=== PATIENT | male | born 1950 | race Hispanic/Latino ===

== ENCOUNTER 2017-02-06 06:28 | Inpatient (IN) | payer MEDICARE, OTHER ==
[2017-02-06] MEDS ORDERED: Bupivacaine 0.5% Inj(30mL) ONE (07:33)
[2017-02-06] MEDS ORDERED: Midazolam 2 MG/2 ML VIAL ONE (08:08)
[2017-02-06] MEDS ORDERED: Propofol 10 mg/ml Inj (20 ML) ONE ×2 (08:08→12:58)
[2017-02-06] MEDS ORDERED: Rocuronium 10 mg/ml (5 ml) ONE (08:10)
[2017-02-06] MEDS ORDERED: Lidocaine 2% Inj (20ml) ONE (08:10)
[2017-02-06] MEDS ORDERED: Phenylephrine 10 mg/ml Inj ONE (09:51)
[2017-02-06] MEDS ORDERED: HYDROmorphone 0.5 mg/0.5 ml ISec IVP PRN ×4 (10:17→13:59)
[2017-02-06] MEDS ORDERED: Lactated Ringer's 1,000 ML IV SCH ×2 (10:17→13:56)
--- NOTE | 2017-02-06 10:18 | PCM.SURG1 ---
Surgeon's Initial Post Op Note - Surgeon's Notes Surgeon: Dr. Castaneda Block Trimmer: Dr. Small, PGY-2 Type of Anesthesia: General LMA Anesthesia Administered By: Dr. Lomeli Pre-Operative Diagnosis: Right Inguinal hernia Operative Findings: See operative report Post-Operative Diagnosis: Same Operation Performed: Right inguinal hernia repair Specimen/Specimens Removed: none Estimated Blood Loss: EBL {In ML}: 5 Blood Products Given: N/A Drains Used: No Drains Post-Op Condition: Good Date of Surgery/Procedure: 02/06/17 Time of Surgery/Procedure: 10:18
[2017-02-06] MEDS ORDERED: Oxycodone/Acetaminophen 5/325 mg Tab ONE (11:18)
[2017-02-06] MEDS: Oxycodone/Acetaminophen 5/325 mg Tab PO PRN ×2 (11:20→18:20)
[2017-02-06 11:58] VITALS: BMI 20.5
--- NOTE | 2017-02-06 12:30 | CON ---
DATE: 02/06/2017 This 66-year-old male was examined at his bedside. The patient has completed a right inguinal hernia repair under the direction of Dr. Marvin Castaneda from surgery. The patient has multiple medical problems including atherosclerotic heart disease, hyperlipidemia, orthostatic hypotension, longstanding insulin- dependent diabetes mellitus with peripheral neuropathy, chronic hypertension, organic brain syndrome, peptic ulcer disease with gastroesophageal reflux disease, pancreatic insufficiency, peripheral neuropathy, spinal arthritis and degenerative arthritis. The patient was noted to have a right inguinal hernia and has had a right inguinal hernia repair with mesh placement by Dr. Castaneda. REVIEW OF SYSTEMS: HEAD: No headache or seizure. EYES: No change in visual acuity. EARS: No hearing loss. THROAT: No swallowing difficulty. NECK: No stiffness. CARDIAC: He follows with Dr. Reagan from the [facility]. The patient completed a 4-vessel CABG in March of last year, has a history of hypertension, orthostatic hypotension and reportedly had an unremarkable 2D echocardiogram in the recent past, also an unremarkable stress test. PULMONARY: No cough, no hemoptysis. GASTROINTESTINAL: Peptic ulcer disease with pancreatic insufficiency. GENITOURINARY: No dysuria. SKIN: Without rash. NEUROLOGICAL: Peripheral neuropathy. VASCULAR: No claudication. ENDO; IDDM, hyperlipidemia. ALLERGIES: He has no known allergies to medication. He is a current nondrinker, nonsmoker, non-IV drug misuser. FAMILY HISTORY: Noncontributory. MEDICATIONS: Includes Crestor, ProAmatine, insulin, multivitamin, metoprolol succinate, Namenda, Prilosec, Creon, Humalog, Neurontin, Wellbutrin, Ecotrin and Elavil. PHYSICAL EXAMINATION: VITAL SIGNS: Temperature 97.9, respirations 16, pulse 79, blood pressure 168/ 90 with a pulse ox of 99%. HEAD: Normocephalic, atraumatic. EYES: No icterus. EARS: Clear. THROAT: Noninjected. NECK: Supple. HEART: S1, S2. LUNGS: Clear. ABDOMEN: Soft. EXTREMITIES: No edema. SKIN: Without rash. NEUROLOGICAL: Intact. PSYCHOLOGICAL: Alert. VASCULAR: Legs warm to touch. Random blood sugar 210. IMPRESSION: A 66-year-old male, status post right inguinal hernia repair with comorbidities as listed above, now with postoperative hypertension and pain. The patent is to receive 1 dose of Toradol 50 mg as outlined. He has a prescription that I have reviewed with Dr. Castaneda from surgery for Percocet 5/ 325 one every 6 hours p.r.n. severe pain, #20, no refills. The patient is instructed on his outpatient medication, which he will continue upon discharge. The patient is aware that he needs to wear anti-embolism stockings, ambulate and follow up with Dr. Castaneda as per his recommendation and as discussed with Dr. Castaneda, the patient will be discharged to home later this evening if stable. All of the above was reviewed in detail with the patient, Dr. Castaneda, and his nursing staff at the bedside. Esther Claros MD cc: [id number] TT: 02/06/2017 12:30:03 Confirmation # [id number] Dictation # [id number] MTDD
[2017-02-06] MEDS ORDERED: Collagen Hemostat Powder ONE (13:16)
[2017-02-06] MEDS ORDERED: Naloxone 0.4 mg/ml Inj (Adult) ONE (13:21)
[2017-02-06] MEDS ORDERED: HYDROmorphone 0.5 mg/0.5 ml ISec ONE (14:17)
[2017-02-06] MEDS: Insulin Reg-LOW-Coverage SC SCH ×2 (16:30→21:21)
[2017-02-06] MEDS ORDERED: MIDODRINE 10 MG PO SCH (18:00)
--- NOTE | 2017-02-06 19:01 | OP ---
PROCEDURE DATE: 02/06/2017 PREOPERATIVE DIAGNOSIS: Postoperative bleeding. POSTOPERATIVE DIAGNOSIS: Postoperative bleeding. OPERATION PERFORMED: Exploration of the wound in the right inguinal area. DESCRIPTION OF PROCEDURE: In the operating room, the patient was identified by name, number, procedu re, and laterality. The patient had a very recent right inguinal hernia repair. The external obliqu e was divided as was the scarpas. Going through the external oblique, there was certainly bleeding. It was not a large amount, but certainly more than expected within an hour. There was ecchymosis in the scrotum. Clot was squeezed out of the scrotum by bimanual pressure and it was sucked out with a tonsil sucker. Picking up on the mesh, there was no bleeding on the top and really no bleeding ongo ing from the bottom. On the floor in the muscle was an arterial bleeder. This was suture ligated wi th a Vicryl to get good effect. A Surgicel and Avitene was placed, and there was no bleeding. The m esh was then placed in its normal position. The external oblique was closed with Vicryl, scarpas was closed with Vicryl. Skin was closed with antwan over a drain that was in the pelvis through the ex ternal oblique. Light pressure dressing was applied. The patient taken to recovery room in good con dition after sponge and needle counts were declared correct. Marvin Castaneda MD cc: [phone] TT: 02/06/2017 19:00:50 david
--- NOTE | 2017-02-06 19:12 | OP ---
PROCEDURE DATE: 02/06/2017 PREOPERATIVE DIAGNOSIS: Right inguinal hernia. POSTOPERATIVE DIAGNOSIS: Right inguinal hernia. OPERATION PERFORMED: Right inguinal hernia with a plug and patch. The patient was marked preoperatively. The successful timeout was done measuring the patient against her name, number, birthday, wrist band, my consent, my capo, my name and number. Preoperative antib iotics 2 grams were given. After the prep and drape and a clip, the right inguinal incision was made through the skin and subcutaneous tissues. It was dissected down to the Tam's. The external obl ique was developed. In the usual manner, it was opened and then spread using a [place] and clearly iden tifying the nerves. Allises were placed on the fascia. The undersurface was cleaned. The cord was circumscribed at the pubic tubercle and gently circumscribed. Using a Madai drain, this was pulled up, exposing the normal cord structures without issue. The hernia was identified entering medial as usual. This was dissected by sharp, blunt and cautery dissection. A high dissection was done. It was not ligated. The sac was then placed in the retroperitoneum, having been twisted. The plug was placed and then sutured with a Vicryl. The mesh was placed around the cord and sutured. It was plac ed in a neutral position and noting there was no bleeding at all. The external oblique was closed wi th 2-0 Vicryl continuous. Tam's was closed with Vicryl and a subcuticular stitch was placed to cl ose very nicely. The testicle was put in its normal position. The patient was taken to recovery shakira mckeon Marvin Castaneda MD cc: [phone] TT: 02/06/2017 19:12:02 en
[2017-02-07] MEDS: Oxycodone/Acetaminophen 5/325 mg Tab PO PRN ×3 (00:59→20:40)
[2017-02-07 08:07] LABS: ADD MANUAL DIFF? NO
[2017-02-07 08:15] LABS: BASO # 0.02 K/mm3 (0.0-2.0); BASO % 0.3 % (0.0-3.0); EOS # 0.1 (0.0-0.7); GRAN # 4.44 (1.4-6.5); GRAN % 75.9 % (50.0-68.0); LYMPH # 0.8 (1.2-3.4); LYMPH % 14.3 % (22.0-35.0); MEAN CELL VOLUME 104.2 fL (80.0-105.0); MEAN CORPUSCULAR HGB CONC 33.6 g/dl (31.0-37.0); MEAN PLATELET VOLUME 11.1 fl (7.0-11.0); MONO # 0.4 (0.1-0.6); MONO % 7.5 % (1.0-6.0); PLATELET COUNT 135 10^3/uL (120.0-450.0); RED CELL DISTRIBUTION WIDTH 13.7 % (11.5-14.5); WHITE BLOOD COUNT 5.9 10^3/ul (4.5-11.0)
[2017-02-07] MEDS: Insulin Reg-LOW-Coverage SC SCH (08:15)
[2017-02-07 08:35] LABS: CALCIUM 9.1 mg/dL (8.4-10.5); POTASSIUM 4.8 mmol/L (3.6-5.0)
[2017-02-07] MEDS ORDERED: Non Formulary Medication (Omeprazole [Omeprazole] 40 MG) PO SCH (10:00)
[2017-02-07] MEDS: buPROPion 150 mg/24 Hours XL Tab PO SCH (10:02)
[2017-02-07] MEDS: Metoprolol Succinate 25 mg XL Tab PO SCH (10:03)
[2017-02-07] MEDS: Pantoprazole 40 mg EC Tab PO SCH (10:03)
[2017-02-07] MEDS ORDERED: Insulin Reg-LOW-Coverage SC SCH (12:33)
--- NOTE | 2017-02-07 14:52 | CP.PCM.PN ---
Subjective - Date & Time of Evaluation Date of Evaluation: 02/07/17 Time of Evaluation: 01:00 - Subjective Subjective: Patient seen and examined at bedside. No acute events overnight. Patient is doing well. He reports some mild discomfort around the surgical site. He denies abdominal pain, focal weakness or numbness. Surgery site is cleaned and dressed. Objective - Vital Signs/Intake and Output Vital Signs (last 24 hours): Temp Pulse Resp BP Pulse Ox 99.1 F 105 H 18 130/77 98 02/07/17 13:56 02/07/17 13:56 02/07/17 13:56 02/07/17 13:56 02/07/17 06:00 Intake and Output: 02/07/17 02/07/17 06:59 18:59 Intake Total 910 50 Output Total 2240 Balance -1330 50 - Medications Medications: Current Medications Amitriptyline HCl (Elavil) 100 mg PO HS [facility] Last Admin: 02/06/17 21:18 Dose: 100 mg Bupropion HCl (Wellbutrin Xl) 300 mg PO DAILY [facility] Last Admin: 02/07/17 10:02 Dose: 300 mg Clonidine HCl (Catapres) 0.1 mg PO BID PRN PRN Reason: Systolic Blood Pressure Insulin Human Regular (Humulin R Low) 0 units SC ACHS [facility] PRN Reason: Protocol Last Admin: 02/07/17 12:43 Dose: 7 units Memantine (Namenda) 10 mg PO DAILY [facility] Last Admin: 02/07/17 10:03 Dose: 10 mg Metoprolol Succinate (Toprol Xl) 25 mg PO DAILY [facility] Last Admin: 02/07/17 10:03 Dose: 25 mg Midodrine (Proamatine) 10 mg PO TID [facility] Last Admin: 02/07/17 14:04 Dose: 10 mg Oxycodone/Acetaminophen (Percocet 5/325 Mg Tab) 1 tab PO Q4H PRN PRN Reason: Pain, moderate (4-7) Stop: 02/09/17 10:17 Last Admin: 02/07/17 08:19 Dose: 1 tab Pantoprazole Sodium (Protonix Ec Tab) 40 mg PO DAILY [facility] Last Admin: 02/07/17 10:03 Dose: 40 mg - Labs Labs: 02/07/17 07:30 02/07/17 07:30 - Constitutional Appears: Non-toxic, No Acute Distress - Head Exam Head Exam: ATRAUMATIC, NORMOCEPHALIC - Eye Exam Eye Exam: EOMI, PERRL - ENT Exam ENT Exam: Mucous Membranes Moist - Neck Exam Neck Exam: Tenderness - Respiratory Exam Respiratory Exam: Clear to Ausculation Bilateral. absent: Rales, Rhonchi, Wheezes - Cardiovascular Exam Cardiovascular Exam: REGULAR RHYTHM. absent: +S1, +S2 - GI/Abdominal Exam GI & Abdominal Exam: Soft, Normal Bowel Sounds. absent: Tenderness - Extremities Exam Extremities Exam: absent: Calf Tenderness, Pedal Edema - Neurological Exam Neurological Exam: Alert, Awake, CN II-XII Intact, Oriented x3 - Psychiatric Exam Psychiatric exam: Normal Affect, Normal Mood - Skin Additional comments: right inguinal hernia site cleaned and dressed. There is no evidence of surgical site infection. Assessment and Plan - Assessment and Plan (Free Text) Assessment: 66 y/o male s/p right inguinal hernia repair with mesh placement and hematoma evacuation POD #1. Patient is anemic with Hgb 8.4 today. Given these findings the patient will remain in the hospital for further w/u per his primary. - pain management - OOB and ambulate - drain to remain in place - dressing changes daily - transfuse 2u PRBC per primary - medical management per primary
[2017-02-07 16:34] VITALS: RESP 18
[2017-02-07] MEDS: Insulin Reg-MEDIUM-Coverage SC SCH ×2 (17:33→22:12)
[2017-02-07 21:36] LABS: HEMATOCRIT 28.2 % (42.0-52.0)
--- NOTE | 2017-02-07 23:58 | PN ---
DATE: 02/07/2017 This 66-year-old male was examined at his bedside in the presence of his with his nurse, Essence Treadwell. His case was reviewed in detail with attending Dr. Marvin Castaneda as well. The patient is stat us post right inguinal hernia repair that was complicated by postoperative bleeding that required fur ther surgery and ligation of a bleeding blood vessel. Of note, laboratory today showed hemoglobin 8. 4, hematocrit 25.0. This was discussed with Dr. Castaneda and all agreed that the patient would benefi t from a blood cell transfusion given history of atherosclerotic heart disease and orthostatic hypote nsion. The patient and were in agreement and signed consent at the bedside at the time of evalu ation. PHYSICAL EXAMINATION: VITAL SIGNS: Temperature 98.9, respirations 18, pulse 106, blood pressure 131/79 with a pulse ox of 98% on room air. HEAD: Normocephalic, atraumatic. EYES: No icterus. EARS: Clear. THROAT: Noninjected. NECK: Supple. HEART: S1, S2. LUNGS: Clear. ABDOMEN: Soft. EXTREMITIES: No edema. SKIN: Without rash. NEUROLOGIC: Intact. PSYCHOLOGICAL: Alert. VASCULAR: Warm to touch. LABORATORY DATA: White count 5900, hemoglobin 8.4, hematocrit 25.0, MCV 104.2, platelets 135,000. S odium 140, K 4.8, chloride 105, bicarbonate 27, BUN 36, creatinine 1.6. Random blood sugar was 188. IMPRESSION: This is a 66-year-old male status post right inguinal hernia repair with postoperative a nemia and also a history of anemia of chronic disease, history of atherosclerotic heart disease, hype rlipidemia, chronic hypertension, orthostatic hypotension, insulin-dependent diabetes mellitus, organ ic brain syndrome, peptic ulcer disease, pancreatic insufficiency, peripheral neuropathy, spinal arth ritis, degenerative arthritis, status post right inguinal hernia repair. PLAN: At present is to transfuse the patient 2 units of packed red blood cells. He continues on med ications as outlined including Elavil, insulin coverage, Namenda, ProAmatine, Protonix, Toprol and We llbutrin. He will continue incentive spirometry and nasal O2 p.r.n. He is ordered to have post-bloo d cell transfusion and labs. He is wearing anti-embolism stockings. Surgery is monitoring his wound site and ultimate plan will be for discharge to home when medically stable and the patient has been given a referral to Dr. Randall Yoder regarding anemia of chronic disease and possible treatment with ou tpatient Procrit in his hematology office. The patient and were aware and in agreement with thi s plan of action and this has been discussed in detail with Dr. Marvin Castaneda from surgery as well. Esther Claros MD cc: [phone] TT: 02/07/2017 23:57:54 Confirmation # [id number] Dictation # [id number] dn
[2017-02-08 06:37] VITALS: TEMP 98.6; O2SAT 96
[2017-02-08 07:51] LABS: ADD MANUAL DIFF? NO
[2017-02-08] MEDS: Insulin Reg-MEDIUM-Coverage SC SCH (08:09)
[2017-02-08 08:13] LABS: BASO # 0.03 K/mm3 (0.0-2.0); BASO % 0.5 % (0.0-3.0); EOS # 0.1 (0.0-0.7); EOS % 1.5 % (1.5-5.0); GRAN # 4.48 (1.4-6.5); GRAN % 74.4 % (50.0-68.0); HEMATOCRIT 29.9 % (42.0-52.0); LYMPH # 0.9 (1.2-3.4); LYMPH % 15.3 % (22.0-35.0); MEAN CORPUSCULAR HGB CONC 34.8 g/dl (31.0-37.0); MEAN PLATELET VOLUME 10.9 fl (7.0-11.0); MONO # 0.5 (0.1-0.6); MONO % 8.3 % (1.0-6.0); PLATELET COUNT 124 10^3/uL (120.0-450.0); RED CELL DISTRIBUTION WIDTH 19.2 % (11.5-14.5)
[2017-02-08 08:32] LABS: MEAN CELL VOLUME 94.9 fL (80.0-105.0)
--- NOTE | 2017-02-08 09:25 | CP.PCM.DIS ---
Provider - Provider Date of Admission: 02/07/17 14:54 Attending physician: Marvin Castaneda MD Primary care physician: Esther Claros MD Time Spent in preparation of Discharge (in minutes): 10 Hospital Course - Lab Results Lab Results: Micro Results 02/06/17 16:35 Naris MRSA Culture (Admit) - Final MRSA NOT DETECTED Most Recent Lab Values WBC 6.0 10^3/ul (4.5-11.0) 02/08/17 07:45 RBC 3.15 10^6/uL (3.5-6.1) L 02/08/17 07:45 Hgb 10.4 gm/dL (14.0-18.0) L 02/08/17 07:45 Hct 29.9 % (42.0-52.0) L 02/08/17 07:45 MCV 94.9 fL (80.0-105.0) 02/08/17 07:45 MCH 33.0 pg (25.0-35.0) 02/08/17 07:45 MCHC 34.8 g/dl (31.0-37.0) 02/08/17 07:45 RDW 19.2 % (11.5-14.5) H 02/08/17 07:45 Plt Count 124 10^3/uL (120.0-450.0) 02/08/17 07:45 MPV 10.9 fl (7.0-11.0) 02/08/17 07:45 Gran % 74.4 % (50.0-68.0) H 02/08/17 07:45 Lymph % (Auto) 15.3 % (22.0-35.0) L 02/08/17 07:45 Callahan % (Auto) 8.3 % (1.0-6.0) H 02/08/17 07:45 Eos % (Auto) 1.5 % (1.5-5.0) 02/08/17 07:45 Baso % (Auto) 0.5 % (0.0-3.0) 02/08/17 07:45 Gran # 4.48 (1.4-6.5) 02/08/17 07:45 Lymph # 0.9 (1.2-3.4) L 02/08/17 07:45 Callahan # 0.5 (0.1-0.6) 02/08/17 07:45 Eos # 0.1 (0.0-0.7) 02/08/17 07:45 Baso # 0.03 K/mm3 (0.0-2.0) 02/08/17 07:45 Sodium 140 mmol/L (132-148) 02/07/17 07:30 Potassium 4.8 mmol/L (3.6-5.0) 02/07/17 07:30 Chloride 105 mmol/L (98-107) 02/07/17 07:30 Carbon Dioxide 27 mmol/L (21-33) 02/07/17 07:30 Anion Gap 13 (10-20) 02/07/17 07:30 BUN 36 mg/dL (7-21) H 02/07/17 07:30 Creatinine 1.6 mg/dL (0.5-1.4) H 02/07/17 07:30 Est GFR ( Amer) 53 02/07/17 07:30 Est GFR (Non-Af Amer) 44 02/07/17 07:30 POC Glucose (mg/dL) 210 mg/dL (65-110) H 02/06/17 07:03 Random Glucose 188 mg/dL (70-110) H 02/07/17 07:30 Calcium 9.1 mg/dL (8.4-10.5) 02/07/17 07:30 Blood Type A POSITIVE 02/06/17 12:55 Antibody Screen Negative 02/06/17 12:55 Crossmatch See Detail 02/06/17 12:55 BBK History Checked Patient has bt 02/06/17 12:55 - Hospital Course Hospital Course: 66M admitted via [facility] for open right inguinal hernia repair. Pt developed hematoma post-op and was taken back for evacuation and hemostasis. Kept additional night for observation and 2 units pRBC at primary's request. D/C today with stable HgB, no further evidence of bleeding and instructions for post -op care Discharge Exam - Head Exam Head Exam: ATRAUMATIC, NORMOCEPHALIC - Respiratory Exam Respiratory Exam: NORMAL BREATHING PATTERN. absent: Accessory Muscle Use, Respiratory Distress - Cardiovascular Exam Cardiovascular Exam: REGULAR RHYTHM. absent: Tachycardia - GI/Abdominal Exam GI & Abdominal Exam: Soft, Tenderness (post-surgical and appropriate). absent: Distended, Firm, Guarding, Hernia Additional comments: massiel in place, minimal serosanguinous drainage - Neurological Exam Neurological exam: Alert, Oriented x3 - Psychiatric Exam Psychiatric exam: Normal Affect, Normal Mood - Skin Skin Exam: Normal Color Discharge Plan - Follow Up Plan Condition: GOOD Disposition: HOME/ ROUTINE Instructions: Open Herniorrhaphy (DC) Additional Instructions: Please see Dr. Castaneda in the office in one week for further evaluation and removal of sutures. Please see your primary physician within the next week. Avoid lifting objects greater than 10lbs until you are cleared by Dr. Castaneda. You may shower however avid vigorous scrubbing to the surgical area. Call or return to the hospital if you experience worsening pain, numbness, fever or chills. Referrals: Esther Claros MD [Primary Care Provider] -
[2017-02-08] MEDS: buPROPion 150 mg/24 Hours XL Tab PO SCH (09:30)
[2017-02-08] MEDS: Pantoprazole 40 mg EC Tab PO SCH (09:30)
[2017-02-08] MEDS: Metoprolol Succinate 25 mg XL Tab PO SCH (09:30)
[2017-02-08 09:34] VITALS: BP 138/80; PULSE 100
--- NOTE | 2017-02-08 12:58 | PN ---
DATE: 02/08/2017 This 66-year-old male is being readied for discharge status post right inguinal hernia repair. He stout s tolerated his 2 units of packed red blood cell transfusion and post-transfusion blood count shows w tonya count 6000, hemoglobin 10.4, hematocrit 29.9 with a platelet count of 124,000. PHYSICAL EXAMINATION: VITAL SIGNS: Temperature is 98.6, respirations 18, pulse 109 and blood pressure 134/83 with a pulse ox of 96% on room air. HEAD: Normocephalic, atraumatic. EYES: No icterus. EARS: Clear. THROAT: Noninjected. NECK: Supple. HEART: S1, S2. LUNGS: Clear. ABDOMEN: Soft. EXTREMITIES: No edema. SKIN: Without rash. NEUROLOGIC: Intact. PSYCHOLOGICAL: Alert. VASCULAR: Legs warm to touch. LABORATORY DATA: Sodium 140, potassium 4.8, chloride 105, bicarbonate 27, BUN 36, creatinine 1.6, ra ndom blood sugar 188, white count 6000, hemoglobin 10.4, hematocrit 29.9, platelets 124,000. IMPRESSION: A 66-year-old male status post right inguinal hernia repair with multiple comorbidities including hyperlipidemia, stable atherosclerotic heart disease, status post coronary artery bypass gr aft, chronic hypertension, orthostatic hypotension, insulin-dependent diabetes mellitus, peptic ulcer disease, pancreatic insufficiency, peripheral neuropathy, organic brain syndrome, spinal arthritis, depression, degenerative arthritis. PLAN: At present is to discharge to home. The patient will follow up with Dr. Marvin Castaneda, [facility], in his office on Friday regarding right inguinal hernia repair followup. He has a referral for Dr. Yoder, hematology, regarding anemia of chronic disease and evaluation for possible Procrit therap y through his office. He will continue on his maintenance medications including Elavil, baby aspirin , Wellbutrin, Neurontin, Humalog insulin, Creon, omeprazole, Namenda, metoprolol succinate, multivita min, Humalog insulin, ProAmatine, Crestor. The patient will be monitored in the medical office outpa tient setting as well. The patient has been advised for any change in signs and symptoms to present directly to [facility] ER and all of these orders were reviewed again with his nurse, Violet Vizcarra, who has given the patient his referral to Dr. Yoder and Dr. Castaneda as well. Esther Claros MD cc: [phone] TT: 02/08/2017 12:57:29 Confirmation # [id number] Dictation # [id number] rn
== END 2017-02-08 11:56 | disposition home or self-care (01) | DRG 351 ==
LOC: SDS 06:28 → 3RNO 16:08 → OBSVTOIN 02-07 14:54
PROVIDERS: ADMIT Surgery; ATTEND Surgery
PROC: 04LY0ZZ Occlusion of Lower Artery, Open Approach (ICD-10-PCS; 2017-02-06)
PROC: 0VC50ZZ Extirpation of Matter from Scrotum, Open Approach (ICD-10-PCS; 2017-02-06)
PROC: 0YU50JZ Supplement Right Inguinal Region with Synthetic Substitute, Open Approach (ICD-10-PCS; principal; 2017-02-06 09:00)
PROC: 30233N1 Transfusion of Nonautologous Red Blood Cells into Peripheral Vein, Percutaneous Approach (ICD-10-PCS; 2017-02-07)
DX: K40.90 Unilateral inguinal hernia, without obstruction or gangrene, not specified as recurrent (principal); K91.840 Postprocedural hemorrhage of a digestive system organ or structure following a digestive system procedure; K91.870 Postprocedural hematoma of a digestive system organ or structure following a digestive system procedure; D63.8 Anemia in other chronic diseases classified elsewhere; I97.3 Postprocedural hypertension; E11.42 Type 2 diabetes mellitus with diabetic polyneuropathy; I10 Essential (primary) hypertension; I25.10 Atherosclerotic heart disease of native coronary artery without angina pectoris; K21.9 Gastro-esophageal reflux disease without esophagitis; I95.1 Orthostatic hypotension; E78.5 Hyperlipidemia, unspecified; M46.90 Unspecified inflammatory spondylopathy, site unspecified; K27.9 Peptic ulcer, site unspecified, unspecified as acute or chronic, without hemorrhage or perforation; F09 Unspecified mental disorder due to known physiological condition; Y83.8 Other surgical procedures as the cause of abnormal reaction of the patient, or of later complication, without mention of misadventure at the time of the procedure; Z79.4 Long term (current) use of insulin; Z95.1 Presence of aortocoronary bypass graft

== ENCOUNTER 2017-03-13 19:42 | Emergency (ER) | payer MEDICARE, OTHER ==
[2017-03-13 19:42] VITALS: BMI 20.7
[2017-03-13 20:07] VITALS: BP 150/83
[2017-03-13] MEDS ORDERED: Oxycodone/Acetaminophen 10/325 mg Tab PO STA (20:31)
--- NOTE | 2017-03-13 20:34 | ED PDOC ---
Arrival/HPI - General Chief Complaint: Back Pain Time Seen by Provider: 03/13/17 20:12 Historian: Patient - History of Present Illness Narrative History of Present Illness (Text): 03/13/17 20:32 This 66 yo male with pmh dm, herniated disc, chronic back pain, cad, presents to this ED c/o exacerbation of back pain x 2 days. Patient stated pain radiates to his left sciatica area. Denies trauma, fall, fever, sob, cp, weakness, paresthesias, /GI incontinence, saddle anesthesia, urinary retention , dizziness, or abnormal gait. Time/Duration: Other (2 days) Quality: Aching Context: Home Past Medical History - Provider Review Nursing Documentation Reviewed: Yes (z+) - Infectious Disease Hx of Infectious Diseases: None - Tetanus Immunization Tetanus Immunization: Up to Date - Reproductive Currently : No Currently Lactating: No - Cardiac Hx Cardiac Disorders: Yes Hx Hypertension: Yes Hx Pacemaker: No - Pulmonary Hx Respiratory Disorders: No - Neurological Hx Dementia: Yes - HEENT Hx HEENT Disorder: No - Renal Hx Renal Disorder: No - Endocrine/Metabolic Hx Diabetes Mellitus Type 2: Yes - Hematological/Oncological Hx Blood Disorders: Yes Hx Anemia: Yes - Integumentary Hx Dermatological Disorder: No - Musculoskeletal/Rheumatological Hx Musculoskeletal Disorders: Yes Hx Falls: Yes - Gastrointestinal Hx Gastrointestinal Disorders: Yes Hx Gastroesophageal Reflux: Yes Hx Pancreatitis: Yes - Genitourinary/Gynecological Hx Genitourinary Disorders: No - Psychiatric Hx Anxiety: Yes Hx Depression: Yes Hx Substance Use: No - Surgical History Hx Cardiac Catheterization: Yes - Anesthesia Hx Anesthesia Reactions: No Hx Malignant Hyperthermia: No - Suicidal Assessment Feels Threatened In Home Enviroment: No Family/Social History - Physician Review Nursing Documentation Reviewed: Yes Family/Social History: No Known Family HX Smoking Status: Former Smoker Hx Alcohol Use: Yes (PAST ETOH) Hx Substance Use: No Hx Substance Use Treatment: No Allergies/Home Meds Allergies/Adverse Reactions: Allergies No Known Allergies Allergy (Verified 03/13/17 20:07) Home Medications: Home Meds Medication Instructions Recorded Confirmed Multivitamin [One Daily 1 tab PO QAM 08/20/12 03/13/17 Multivitamin] Aspirin [Aspirin Chewable] 81 mg PO DAILY 03/04/16 03/13/17 Bupropion HCl [Bupropion Xl] 300 mg PO DAILY 03/04/16 03/13/17 Omeprazole 40 mg PO DAILY 03/04/16 03/13/17 Amitriptyline [Elavil] 100 mg PO HS 09/12/16 03/13/17 Gabapentin [Neurontin] 600 mg PO TID 09/12/16 03/13/17 Insulin Lispro [humALOG] 8 - 10 units SC ACLD 09/12/16 03/13/17 Lactobacillus Combination No.8 1 tab PO DAILY 09/12/16 03/13/17 [Adult Probiotic] Lipase/Protease/Amylase [Creon Dr 2 cap PO TID 09/12/16 03/13/17 12,000 Units Capsule] Memantine [Namenda] 10 mg PO DAILY 09/12/16 03/13/17 Metoprolol Succinate 25 mg PO DAILY 09/12/16 03/13/17 Insulin Lispro [Humalog (Insulin 15 - 20 unit SQ ACB 01/22/17 03/13/17 Lispro)] Midodrine [Proamatine] 10 mg PO TID 01/22/17 03/13/17 Rosuvastatin Calcium [Crestor] 10 mg PO DIN 01/22/17 03/13/17 Review of Systems - Review of Systems Constitutional: Normal. absent: Fatigue, Weight Change, Fevers Eyes: Normal ENT: Normal Respiratory: Normal Cardiovascular: Normal Gastrointestinal: Normal Genitourinary Male: Normal Musculoskeletal: Back Pain, Other (See HPI). absent: Arthralgias, Neck Pain, Joint Swelling Skin: Normal Neurological: Normal Endocrine: Normal Hemo/Lymphatic: Normal Psychiatric: Normal Physical Exam Vital Signs Temp Pulse Resp BP Pulse Ox 03/13/17 20:53 99.0 F 99 H 16 96 03/13/17 20:52 99.0 F 99 H 16 99 03/13/17 20:02 99.1 F 102 H 16 150/83 96 Temperature: Afebrile Blood Pressure: Normal Pulse: Regular Respiratory Rate: Normal Appearance: Positive for: Well-Appearing, Non-Toxic, Comfortable Pain Distress: None Mental Status: Positive for: Alert and Oriented X 3 - Systems Exam Head: Present: Atraumatic, Normocephalic Pupils: Present: PERRL Extroacular Muscles: Present: EOMI Conjunctiva: Present: Normal Mouth: Present: Moist Mucous Membranes Neck: Present: Normal Range of Motion Respiratory/Chest: Present: Clear to Auscultation, Good Air Exchange. No: Respiratory Distress, Accessory Muscle Use, Wheezes, Retracting, Rhonchi Cardiovascular: Present: Regular Rate and Rhythm, Normal S1, S2. No: Murmurs Back: Present: Normal Inspection, Paraspinal Tenderness (mild left paravertebral tenderness over areao left sciatica). No: CVA Tenderness, Midline Tenderness, Pain with Leg Raise, Decubitus Ulcer Upper Extremity: Present: Normal Inspection, Normal ROM, NORMAL PULSES, Neurovascularly Intact, Capillary Refill < 2s Lower Extremity: Present: Normal Inspection, NORMAL PULSES, Normal ROM. No: Edema, CALF TENDERNESS Neurological: Present: GCS=15, CN II-XII Intact, Speech Normal, Gait Normal. No : Motor Func Grossly Intact, Normal Sensory Function, Normal Cerebellar Funct Skin: Present: Warm, Dry, Normal Color. No: Rashes Psychiatric: Present: Alert, Oriented x 3 Medical Decision Making ED Course and Treatment: 03/13/17 20:48 Re-evaluation. Patient feels better. Discussed results and plan with patient who expresses understanding. All questions answered and there is agreement with the plan to discharge home with instructions. Patient stable for discharge. Return if symptoms persist or worsen Patient stated his DM is well control. Denies neuro focal deficits. Patient has normal gait. Patient refused FS POC. Pain has improved after Percocet PO [place] [employer] was checked with last prescription of Tylenol #3 was last year. Patient is aware that the use of Percocet put him a risk for addiction to this drug, and potentially risk of abuse of other similar legal, or illegal drug. He understands and he agrees with the prescription. Re-evaluation Time: 20:49 Reassessment Condition: Re-examined, Improved - Medication Orders Current Medication Orders: Discontinued Medications Oxycodone/Acetaminophen (Percocet 10/325 Mg Tab) 1 tab PO STAT STA Stop: 03/13/17 20:32 Last Admin: 03/13/17 20:45 Dose: 1 tab Disposition/Present on Arrival - Present on Arrival Any Indicators Present on Arrival: No History of DVT/PE: No History of Uncontrolled Diabetes: No Urinary Catheter: No History of Decub. Ulcer: No History Surgical Site Infection Following: None - Disposition Have Diagnosis and Disposition been Completed?: Yes Diagnosis: Back pain Disposition: HOME/ ROUTINE Disposition Time: 20:50 Patient Plan: Discharge Condition: IMPROVED Discharge Instructions (ExitCare): Back Pain (ED) Additional Instructions: Call private doctor for follow up visit in 1-2 days. Make sure to see your pain management doctor next week as scheduled by you. Return to emergency if symptoms worsen. Prescriptions: Methocarbamol [Robaxin-750] 750 mg PO TID #21 tab oxyCODONE/Acetaminophen [Percocet 5/325 mg Tab] 1 tab PO BID #10 tab Referrals: Esther Claros MD [Primary Care Provider] - Follow up with primary
[2017-03-13 20:53] VITALS: PULSE 99; RESP 16; TEMP 99
[2017-03-13 20:54] VITALS: O2SAT 96
== END 2017-03-13 20:53 | disposition home or self-care (01) ==
LOC: ED 19:42
DX: M54.9 Dorsalgia, unspecified (principal); Z87.891 Personal history of nicotine dependence; E11.9 Type 2 diabetes mellitus without complications; I25.10 Atherosclerotic heart disease of native coronary artery without angina pectoris

== ENCOUNTER 2017-04-01 09:52 | Observation (INO) | payer MEDICARE, OTHER ==
--- NOTE | 2017-04-01 10:30 | ED PDOC ---
Arrival/HPI - General Historian: Patient, Spouse - History of Present Illness Time/Duration: Prior to Arrival Symptom Onset: Sudden Symptom Course: Resolved Context: Home <Moni Bean - Last Filed: 04/01/17 14:43> <Yohana Randhawa - Last Filed: 04/01/17 18:29> - General Chief Complaint: Medical Clearance Time Seen by Provider: 04/01/17 10:14 - History of Present Illness Narrative History of Present Illness (Text): 04/01/17 10:35 Patient is a 67 y/o with pmh of CAD s/p triple bypass last year, IDDM2, neuropathy, dementia presenting with hypoglycemia. As per patient he used his 10 units humalog prior to dinner last night, and he took 30 units of levemir prior to bed. Patient's states patient usually eats breakfast around 7-8, this AM they woke up late, and when she checked patient's glucose it was 31. Patient's called ambulance and patient was giving d50. As per patient's patient had similar episode last week, however decided not to come to the ED. Patient denies cp, sob, n/v/d, denies fever or chills. Patient admits to dysuria. C/o chronic pain in the left hip 2nd to pinched nerve. (Moni Bean) Past Medical History - Provider Review Nursing Documentation Reviewed: Yes - Travel History Have you recently traveled outside [place] w/in the past 3 mons?: No - Infectious Disease Hx of Infectious Diseases: None - Tetanus Immunization Tetanus Immunization: Up to Date - Reproductive Currently : No Currently Lactating: No - Cardiac Hx Cardiac Disorders: Yes Hx Hypertension: Yes Hx Pacemaker: No - Pulmonary Hx Respiratory Disorders: No - Neurological Hx Dementia: Yes - HEENT Hx HEENT Disorder: No - Renal Hx Renal Disorder: No - Endocrine/Metabolic Hx Diabetes Mellitus Type 1: Yes - Hematological/Oncological Hx Blood Disorders: Yes Hx Anemia: Yes - Integumentary Hx Dermatological Disorder: No - Musculoskeletal/Rheumatological Hx Musculoskeletal Disorders: Yes Hx Falls: Yes - Gastrointestinal Hx Gastrointestinal Disorders: Yes Hx Gastroesophageal Reflux: Yes Hx Pancreatitis: Yes - Genitourinary/Gynecological Hx Genitourinary Disorders: No - Psychiatric Hx Anxiety: Yes Hx Depression: Yes Hx Substance Use: No - Surgical History Hx Cardiac Catheterization: Yes Other/Comment: Bypass - Anesthesia Hx Anesthesia Reactions: No Hx Malignant Hyperthermia: No - Suicidal Assessment Feels Threatened In Home Enviroment: No <Moni Bean - Last Filed: 04/01/17 14:43> Family/Social History - Physician Review Nursing Documentation Reviewed: Yes Family/Social History: Diabetes, Hypertension, CAD/DC Smoking Status: Former Smoker Hx Alcohol Use: Yes (PAST ETOH) Hx Substance Use: No Hx Substance Use Treatment: No <Moni Bean - Last Filed: 04/01/17 14:43> Allergies/Home Meds <Moni Bean - Last Filed: 04/01/17 14:43> <Yohana Randhawa - Last Filed: 04/01/17 18:29> Allergies/Adverse Reactions: Allergies No Known Allergies Allergy (Verified 04/01/17 10:07) Home Medications: Home Meds Medication Instructions Recorded Confirmed Multivitamin [One Daily 1 tab PO QAM 08/20/12 04/01/17 Multivitamin] Aspirin [Aspirin Chewable] 81 mg PO DAILY 03/04/16 04/01/17 Bupropion HCl [Bupropion Xl] 300 mg PO DAILY 03/04/16 04/01/17 Amitriptyline [Elavil] 100 mg PO HS 09/12/16 04/01/17 Gabapentin [Neurontin] 600 mg PO TID 09/12/16 04/01/17 Insulin Lispro [humALOG] 8 - 10 units SC AC 09/12/16 04/01/17 Memantine [Namenda] 10 mg PO DAILY 09/12/16 04/01/17 Metoprolol Succinate 50 mg PO HS 09/12/16 04/01/17 Midodrine [Proamatine] 10 mg PO TID 01/22/17 04/01/17 Rosuvastatin Calcium [Crestor] 10 mg PO DIN 01/22/17 04/01/17 Insulin Glargine, Recombina 25 units SC 04/01/17 04/01/17 [Lantus] Lactobacillus Combination No.8 1 tab PO DAILY 04/01/17 04/01/17 [Adult Probiotic] Lipase/Protease/Amylase [Austin Crowley 2,400 units PO TID 04/01/17 04/01/17 6,000 Units Capsule] Review of Systems - Review of Systems Constitutional: Normal Eyes: Normal ENT: Normal Respiratory: Normal Cardiovascular: Normal Gastrointestinal: Normal Genitourinary Male: Dysuria, Frequency. absent: Hematuria Musculoskeletal: Other (left hip pain.) Skin: Normal Neurological: Normal Endocrine: Normal Hemo/Lymphatic: Normal Psychiatric: Normal <Moni Bean - Last Filed: 04/01/17 14:43> Physical Exam Vital Signs Reviewed: Yes Temperature: Afebrile Blood Pressure: Normal Pulse: Regular Respiratory Rate: Normal Appearance: Positive for: Non-Toxic, Comfortable, Ill-Appearing Pain Distress: None Mental Status: Positive for: Alert and Oriented X 3 Finger Stick Blood Glucose: 161 - Systems Exam Head: Present: Atraumatic, Normocephalic Pupils: Present: PERRL Conjunctiva: No: Icteric Mouth: Present: Dry Neck: Present: Normal Range of Motion. No: MIDLINE TENDERNESS, JVD Respiratory/Chest: Present: Clear to Auscultation, Good Air Exchange. No: Respiratory Distress, Accessory Muscle Use, Wheezes, Rales, Retracting, Rhonchi , Tachypneic Cardiovascular: Present: Regular Rate and Rhythm, Normal S1, S2. No: Murmurs, Irregular Rhythm, Tachycardic, Bradycardic, Rub, Gallop Abdomen: Present: Tenderness (ruq ), Normal Bowel Sounds. No: Distention, Rebound, Guarding, Hernias, Feeding Tubes, Scars Upper Extremity: Present: Normal Inspection. No: Cyanosis, Edema Lower Extremity: Present: Normal Inspection. No: Edema Neurological: Present: GCS=15 Skin: Present: Warm, Dry, Rashes, Normal Color Psychiatric: Present: Alert, Oriented x 3, Normal Insight, Normal Concentration <Moni Bean - Last Filed: 04/01/17 14:43> Medical Decision Making Re-evaluation Time: 12:10 - EKG Interpretation Interpreted by ED Physician: Yes Type: 12 lead EKG <Moni Bean - Last Filed: 04/01/17 14:43> <Yohana Randhawa - Last Filed: 04/01/17 18:29> ED Course and Treatment: 04/01/17 10:46 67 y/o M with h/o quadruple bypass, IDDM and diabetic neuropathy presenting with recurrent hypoglycemia. Differentials: hypoglycemia 2nt to inappropriate use of insulin, low intake, infection, atypical presentation of ACS. Plan: S/P D50 by EMS, fingerstick of 136 in the ED. CBC, CMP, TSH, ua, cardiac enzymes. EKG, and mod carb controlled diet. And reevaluate. Discussed with Dr Randhawa 04/01/17 13:25 Patient's repeat fingerstick was 103, diet was ordered for the patient. Dr Randhawa spoke to Dr Claros, Patient is to be admitted to [facility] for further management. Patient is aware of the admission. (Moni Bean) Patient Seen With Resident: In agreement with resident note. Patient was seen and evaluated with resident, came up with plan and treatment together. 67 year old male whose past medical history includes IDDM, presents with altered mental status and being found hypoglycemic by medics. Reportedly patient took Insulin as he typically does last night but did not eat this morning. Denies chest pain or shortness of breath. Had improvement in mental status after D50 given by medics prior to arrival. Will check basic labs and continue serial exams in Emergency department. Patient alert and at baseline mental status on re-evaluation, I discussed history and symptoms with , who states he had similar episode earlier in the week, was evaluated by medics but felt better after treatment and did not come to hospital. Currently afebrile, no chest pain or sob. RBBB noted on EKG noted on prior EKG. Case reviewed with Dr. Claros, PMD, given repeated episodes will admit for serial exams, monitoring of blood sugar and symptoms. 04/01/17 18:27 (Yohana Randhawa) - Lab Interpretations Lab Results: 04/01/17 11:10 04/01/17 11:10 Lab Results 04/01/17 12:53: Urine Color Yellow, Urine Appearance Clear, Urine pH 6.0, Ur Specific [place] 1.025, Urine Protein Negative, Urine Glucose (UA) Negative, Urine Ketones Negative, Urine Blood Negative, Urine Nitrate Negative, Urine Bilirubin Negative, Urine Urobilinogen 0.2, Ur Leukocyte Esterase Negative 04/01/17 11:21: POC Glucose (mg/dL) 103 04/01/17 11:10: TSH 3rd Generation 0.94 04/01/17 11:10: Sodium 141, Potassium 4.4, Chloride 109 H, Carbon Dioxide 22, Anion Gap 14, BUN 34 H, Creatinine 1.5 H, Est GFR ( Amer) 57, Est GFR ( Non-Af Amer) 47, Random Glucose 106, Calcium 8.9, Magnesium 1.3 L, Total Bilirubin 0.5, AST 22, ALT 31, Alkaline Phosphatase 69, Lactate Dehydrogenase 494, Total Creatine Kinase 72, Troponin I < 0.01, Total Protein 5.4 L, Albumin 3.2, Globulin 2.2, Albumin/Globulin Ratio 1.5 04/01/17 11:10: WBC 7.7 D, RBC 2.85 L, Hgb 9.6 L, Hct 28.9 L, MCV 101.4, MCH 33.7, MCHC 33.2, RDW 16.1 H, Plt Count 171, MPV 11.0, Gran % 86.6 H, Lymph % ( Auto) 7.9 L, Wells % (Auto) 4.2, Eos % (Auto) 1.0 L, Baso % (Auto) 0.3, Gran # 6.65 H, Lymph # 0.6 L, Wells # 0.3, Eos # 0.1, Baso # 0.02 - RAD Interpretation Radiology Orders: 04/01/17 13:19 CHEST PORTABLE [RAD] Stat - EKG Interpretation EKG Interpretation (Text): 04/01/17 14:39 NSR at HR of 95 RBBB MILDLY PROLONGED qtc No MN interval prolongation Normal axis (Adeoshun,Moni) - Medication Orders Current Medication Orders: Amitriptyline HCl (Elavil) 100 mg PO DAILY [facility] Aspirin (Aspirin Chewable) 81 mg PO DAILY [facility] Bupropion HCl (Wellbutrin) 150 mg PO BID [facility] Last Admin: 04/01/17 18:15 Dose: 150 mg Gabapentin (Neurontin) 600 mg PO TID JOLYNN PRN Reason: Protocol Last Admin: 04/01/17 18:16 Dose: 600 mg Home Med (Home Med) 2 unit PO 1000,1400,1800 [facility] Last Admin: 04/01/17 18:16 Dose: Dextrose/Sodium Chloride (Dextrose 5%/0.9% Ns 1000 Ml) 1,000 mls @ 50 mls/hr IV .Q20H JOLYNN Last Admin: 04/01/17 14:59 Dose: 50 mls/hr Insulin Detemir (Levemir) 20 unit SC HS JOLYNN Insulin Human Lispro (Humalog Low) 0 units SC AC [facility] PRN Reason: Protocol Last Admin: 04/01/17 18:16 Dose: 2 units Memantine (Namenda) 10 mg PO DAILY JOLYNN Metoprolol Tartrate (Lopressor) 50 mg PO DAILY JOLYNN Midodrine (Proamatine) 10 mg PO 0700,1100,1500 JOLYNN Multivitamins (Thera Tab) 1 tab PO 0800 JOLYNN Discontinued Medications Magnesium Sulfate 2 gm/ Sodium (Chloride) 104 mls @ 102 mls/hr IV ONCE ONE Stop: 04/01/17 12:53 Last Admin: 04/01/17 12:50 Dose: 102 mls/hr Morphine Sulfate (Morphine) 2 mg IVP STAT STA Stop: 04/01/17 14:45 Last Admin: 04/01/17 14:58 Dose: 2 mg Pneumococcal Polyvalent Vaccine (Pneumovax 23 Vaccine) 0.5 ml IM .ONCE ONE Stop: 04/01/17 15:54 - PA / [employer] / Resident Statement / has reviewed & agrees with the documentation as recorded. / has examined the patient and agrees with the treatment plan. <Yohana Randhawa - Last Filed: 04/01/17 18:29> Disposition/Present on Arrival - Present on Arrival Any Indicators Present on Arrival: Yes History of DVT/PE: No History of Uncontrolled Diabetes: No Urinary Catheter: No History of Decub. Ulcer: No History Surgical Site Infection Following: None - Disposition Have Diagnosis and Disposition been Completed?: Yes Disposition Time: 13:30 Patient Plan: Admission, Telemetry <Moni Bean - Last Filed: 04/01/17 14:43> - Present on Arrival Any Indicators Present on Arrival: Yes History of Uncontrolled Diabetes: Yes - Disposition Have Diagnosis and Disposition been Completed?: Yes <Yohana Randhawa - Last Filed: 04/01/17 18:29> - Disposition Diagnosis: Hypomagnesemia, Hypoglycemia Disposition: HOSPITALIZED Patient Problems: Current Active Problems Problem Status Onset Hypoglycemia Acute Hypomagnesemia Acute Condition: FAIR
[2017-04-01 11:18] LABS: ADD MANUAL DIFF? NO
[2017-04-01 11:22] LABS: BASO # 0.02 K/mm3 (0.0-2.0); BASO % 0.3 % (0.0-3.0); EOS # 0.1 (0.0-0.7); GRAN # 6.65 (1.4-6.5); GRAN % 86.6 % (50.0-68.0); HEMATOCRIT 28.9 % (42.0-52.0); LYMPH # 0.6 (1.2-3.4); LYMPH % 7.9 % (22.0-35.0); MEAN CELL VOLUME 101.4 fL (80.0-105.0); MEAN CORPUSCULAR HEMOGLOBIN 33.7 pg (25.0-35.0); MEAN CORPUSCULAR HGB CONC 33.2 g/dl (31.0-37.0); MONO # 0.3 (0.1-0.6); MONO % 4.2 % (1.0-6.0); PLATELET COUNT 171 10^3/uL (120.0-450.0); RED CELL DISTRIBUTION WIDTH 16.1 % (11.5-14.5); WHITE BLOOD COUNT 7.7 10^3/ul (4.5-11.0)
[2017-04-01 11:33] LABS: ALB/GLOB RATIO 1.5 (1.1-1.8); ALKALINE PHOSPHATASE 69 U/L (38-133); ALT/SGPT 31 U/L (7-56); AST/SGOT 22 U/L (15-59); BILIRUBIN,TOTAL 0.5 mg/dL (0.2-1.3); BLOOD UREA NITROGEN 34 mg/dL (7-21); CALCIUM 8.9 mg/dL (8.4-10.5); CARBON DIOXIDE 22 mmol/L (21-33); CHLORIDE 109 mmol/L (98-107); GFR AFRICAN-AMERICAN 57; GLUCOSE,RANDOM 106 mg/dL (70-110); MAGNESIUM 1.3 mg/dL (1.7-2.2); POTASSIUM 4.4 mmol/L (3.6-5.0); SODIUM 141 mmol/L (132-148); TOTAL PROTEIN 5.4 g/dL (5.8-8.3)
[2017-04-01 11:45] LABS: TROPONIN I < 0.01 ng/mL
[2017-04-01] MEDS ORDERED: Magnesium Sulfate 2 GM in Sodium Chloride 0.9% 100 ML IV ONE (11:52)
[2017-04-01 12:56] LABS: URINE BILIRUBIN NEGATIVE (NEGATIVE); URINE BLOOD NEGATIVE (NEGATIVE); URINE GLUCOSE (UA) NEGATIVE (NEGATIVE); URINE KETONE NEGATIVE (NEGATIVE); URINE LEUKOCYTE ESTERASE NEGATIVE Leu/uL (NEGATIVE); URINE PROTEIN NEGATIVE mg/dL (<30 mg/dL); URINE UROBILINOGEN 0.2 E.U./dL (<1 E.U./dL)
[2017-04-01 12:59] LABS: URINE APPEARANCE CLEAR (CLEAR); URINE COLOR YELLOW (YELLOW)
[2017-04-01] MEDS ORDERED: Dextrose 5%/0.9% NS 1,000 ML IV SCH (13:30)
[2017-04-01] MEDS ORDERED: Morphine 2 mg/ml ISec IVP STA (14:44)
[2017-04-01 15:52] VITALS: BMI 20.8
[2017-04-01] MEDS ORDERED: Pneumococcal 23-Valent Vaccine IM ONE (15:53)
--- NOTE | 2017-04-01 17:38 | RAD ---
HISTORY: hypoglycemia COMPARISON: No prior. FINDINGS: LUNGS: No active pulmonary disease. PLEURA: No significant pleural effusion identified, no pneumothorax apparent. CARDIOVASCULAR: Normal. OSSEOUS STRUCTURES: Sternal wires VISUALIZED UPPER ABDOMEN: Normal. OTHER FINDINGS: None. IMPRESSION: No active disease.
[2017-04-01] MEDS: Insulin Lispro (humaLOG) LOW Coverage SC SCH (18:16)
[2017-04-01] MEDS: Home Med 1 UNIT PO SCH (18:16)
[2017-04-01] MEDS: Oxycodone/Acetaminophen 5/325 mg Tab PO PRN (18:53)
[2017-04-01] MEDS ORDERED: Insulin Detemir 100 units/ml Vial (Levemir) SC SCH (22:00)
--- NOTE | 2017-04-01 22:12 | CARD ---
APPROVED REPORT EKG Measurement Heart [id number] <Conclusion> Normal sinus rhythm Right bundle branch block Abnormal ECG
[2017-04-02 06:52] VITALS: TEMP 98.4; O2SAT 95
[2017-04-02] MEDS ORDERED: Multivitamin Therapeutic Tab PO SCH (08:00)
[2017-04-02] MEDS: Insulin Lispro (humaLOG) LOW Coverage SC SCH ×2 (08:38→13:46)
[2017-04-02] MEDS: Oxycodone/Acetaminophen 5/325 mg Tab PO PRN ×2 (08:48→13:51)
[2017-04-02] MEDS ORDERED: Insulin Detemir 100 units/ml Vial (Levemir) SC SCH (09:16)
[2017-04-02] MEDS ORDERED: Nitroglycerin 2% Ointment Foilpak UD TOP PRN (09:20)
[2017-04-02] MEDS: Home Med 1 UNIT PO SCH ×2 (10:06→13:44)
--- NOTE | 2017-04-02 11:07 | CP.PCM.HP ---
History of Present Illness - History of Present Illness History of Present Illness: This 67 year old male presented to [place] [facility] [place] c/o weakness and AMS in the setting of hypoglycemia. His family called the local ambulace service to his home. They reportedly gave the patient glucose on the scene and transported him to the ER for further evaluation. The patient was alert and oriented when I evaluated him in the ER on Friday, April 01, 2017. He had an IV in place and was given something to eat. The patient told me he had taken his usual Insulin last evening but did not eat. This most likely precipitated his hypoglycemic event. Present on Admission - Present on Admission Any Indicators Present on Admission: Yes History of DVT/PE: No History of Uncontrolled Diabetes: Yes Urinary Catheter: No Decubitus Ulcer Present: No - Notes: Notes:: BS was reportedly less than 50mg/dl in patient's home this morning. Review of Systems - Review of Systems Systems not reviewed;Unavailable: Dementia, Altered Mental Status - Constitutional Constitutional: As Per HPI, Fatigue, Lethargy, Weakness - EENT Eyes: Requires Corrective Lenses - Cardiovascular Cardiovascular: Lightheadedness, Other Additional comments: Hypertension, orthostatatic hypotension, stable ASHD, s/p CABG. - Gastrointestinal Additional comments: Chronic pancreatitis, PUD - Genitourinary Additional comments: CRF stage 3 - Musculoskeletal Additional comments: DJD - Integumentary Integumentary: Dry Skin - Neurological Neurological: Dizziness, Memory Loss, Weakness Additional comments: Spinal arthiritis, Organic Brain Syndrome - Psychiatric Psychiatric: Anxiety, Confusion, Depression, Memory Loss - Endocrine Endocrine: Fatigue Additional Comments: IDDM, Hyperlipidemia Past Patient History - Infectious Disease Hx of Infectious Diseases: None - Tetanus Immunizations Tetanus Immunization: Up to Date - Past Medical History & Family History Past Medical History?: Yes - Past Social History Smoking Status: Former Smoker - CARDIAC Hx Cardiac Disorders: Yes (triple bypass 2015) Hx Hypercholesterolemia: Yes Hx Hypertension: Yes Hx Pacemaker: No Hx Peripheral Vascular Disease: Yes Other/Comment: can't feel bottom of both feet/pins and needles to legs/tingling and pins and needles to hands - PULMONARY Hx Respiratory Disorders: No - NEUROLOGICAL Hx Dementia: Yes (early stages memory loss) Hx Dizziness: Yes - HEENT Hx HEENT Problems: Yes (eyeglasses) Hx Cataracts: Yes (r eye cataract ex done, left eye not done) - RENAL Hx Chronic Kidney Disease: No - ENDOCRINE/METABOLIC Hx Diabetes Mellitus Type 1: Yes - HEMATOLOGICAL/ONCOLOGICAL Hx Blood Disorders: Yes Hx Anemia: Yes (blood transfusion) - INTEGUMENTARY Hx Dermatological Problems: Yes Other/Comment: multiple tatoos, healed r ft 3rd toe wound - MUSCULOSKELETAL/RHEUMATOLOGICAL Hx Falls: No - GASTROINTESTINAL Hx Gastrointestinal Disorders: Yes (bleeding ulcer/gastritis) Hx Gastroesophageal Reflux: Yes Hx Pancreatitis: Yes Other/Comment: 15 lb weight loss in 3 months - GENITOURINARY/GYNECOLOGICAL Other/Comment: burning on urination "few months"/dysuria/difficulty initiating stream - PSYCHIATRIC Hx Substance Use: No - SURGICAL HISTORY Hx Cardiac Catheterization: Yes Hx Coronary Stent: Yes (x7) Other/Comment: triple bypass 2016, evacuation of scrotal hematoma and r inguinal hernia repair 02/06/17, anterior cervical disc sx "when I was in my 40's ", b/l elbow sx for "tennis elbow" pt stated "and I don't even play tennis" - ANESTHESIA Hx Anesthesia Reactions: No Hx Malignant Hyperthermia: No Meds Allergies/Adverse Reactions: Allergies Allergy/AdvReac Type Severity Reaction Status Date / Time No Known Allergies Allergy Verified 04/01/17 10:07 Physical Exam - Constitutional Appears: Older Than Stated Age, Chronically Ill - Head Exam Head Exam: ATRAUMATIC, NORMAL INSPECTION, NORMOCEPHALIC - Eye Exam Eye Exam: EOMI, Normal appearance Pupil Exam: NORMAL ACCOMODATION, PERRL - ENT Exam ENT Exam: Mucous Membranes Moist - Neck Exam Neck exam: Positive for: Full Rom, Normal Inspection - Respiratory Exam Respiratory Exam: Clear to Auscultation Bilateral, NORMAL BREATHING PATTERN - Cardiovascular Exam Cardiovascular Exam: REGULAR RHYTHM - GI/Abdominal Exam GI & Abdominal Exam: Normal Bowel Sounds, Soft - Rectal Exam Rectal Exam: NORMAL INSPECTION - Exam Exam: NORMAL INSPECTION External exam: NORMAL EXTERNAL EXAM - Extremities Exam Extremities exam: Positive for: normal inspection - Back Exam Back exam: NORMAL INSPECTION - Neurological Exam Neurological exam: Alert, Oriented x3 - Psychiatric Exam Psychiatric exam: Normal Affect - Skin Skin Exam: Dry Results - Vital Signs Recent Vital Signs: Last Vital Signs Temp 98.4 F 04/02/17 08:29 Pulse 73 04/02/17 08:29 Resp 18 04/02/17 08:29 BP 122/71 04/02/17 08:29 Pulse Ox 95 04/02/17 08:29 Vital Signs - 24 hr 04/01/17 04/01/17 04/01/17 13:20 15:38 16:00 Temperature 97.8 F 97.8 F 98.6 F Pulse Rate 105 H 105 H 104 H Pulse Rate [ 105 H Apical] Respiratory 19 19 20 Rate Blood Pressure 129/77 129/77 161/90 H O2 Sat by Pulse 99 97 Oximetry 04/01/17 04/02/17 04/02/17 22:46 06:00 08:29 Temperature 98.4 F 98.4 F Pulse Rate 104 H 73 73 Pulse Rate [ Apical] Respiratory 18 18 Rate Blood Pressure 161/90 H 122/71 122/71 O2 Sat by Pulse 95 95 Oximetry Vital Signs (72 hours) 04/01/17 04/01/17 04/01/17 09:56 13:20 15:38 Temperature 97.4 F L 97.8 F 97.8 F Pulse Rate 100 H 105 H 105 H Pulse Rate [ 105 H Apical] Respiratory 16 19 19 Rate Blood Pressure 134/81 129/77 129/77 O2 Sat by Pulse 97 99 Oximetry 04/01/17 04/01/17 04/02/17 16:00 22:46 06:00 Temperature 98.6 F 98.4 F Pulse Rate 104 H 104 H 73 Pulse Rate [ Apical] Respiratory 20 18 Rate Blood Pressure 161/90 H 161/90 H 122/71 O2 Sat by Pulse 97 95 Oximetry 04/02/17 08:29 Temperature 98.4 F Pulse Rate 73 Pulse Rate [ Apical] Respiratory 18 Rate Blood Pressure 122/71 O2 Sat by Pulse 95 Oximetry - Labs Result Diagrams: 04/01/17 11:10 04/01/17 11:10 Labs: Laboratory Results - last 24 hr 04/01/17 04/01/17 04/01/17 14:53 16:01 21:41 POC Glucose (mg/dL) 164 H 239 H 231 H 04/02/17 07:31 POC Glucose (mg/dL) 326 H - EKG Data EKG Interpreted by: ER Physician EKG shows normal: Sinus rhythm Rate: Normal - EKG Data When Compared to Previous EKG: No Significant Change Assessment & Plan - Assessment and Plan (Free Text) Assessment: Hypoglycemia, IDDM, chronic hypertension, stalbe ASHD, s/p CABG, orthostatic hypotension, CRF stage 3, anemia of chronic disease, spinal arthritis, DJD, chronic depression, anxiety, pancreatic insufficiency. This [patient will be admitted to the cardiac unit. He will be given IV fluids, insulins and insulin coverage. He will require Phyical therpay, diabetic reeducation, and I will request TCU eval. All of this was discussed with the patient, Nursing staff and greater than 45 minutes was spent in the care of this patient on his admission on Saturday, April 01, 2017. All hospital medications have been ordered and reviewed with the patient and his nurse Lauren Vizcarra.
[2017-04-02] MEDS ORDERED: Insulin Lispro 1 UNITS/0.01 ML SC SCH (11:30)
[2017-04-02 12:02] LABS: ALB/GLOB RATIO 1.5 (1.1-1.8); BILIRUBIN,TOTAL 0.6 mg/dL (0.2-1.3); CALCIUM 9.4 mg/dL (8.4-10.5); MAGNESIUM 1.5 mg/dL (1.7-2.2); POTASSIUM 4.7 mmol/L (3.6-5.0); TOTAL PROTEIN 5.9 g/dL (5.8-8.3)
--- NOTE | 2017-04-02 12:15 | CP.PCM.PN ---
Subjective - Date & Time of Evaluation Date of Evaluation: 04/02/17 Time of Evaluation: 11:30 - Subjective Subjective: Patient lying in bed. Alert and oriented. He is complianing of chronic back pain not relieved by Percocet. He claims the only medication that he wants is Oxycodone. He states he has had failed attempts at epidurals as an outpatient for pain control. I did advise him to see Neurology last month for a neurosurgery recommendation for his herniated disc disease. He failed to follow through with this recommendation. I will request pain mangement consultation at present. Objective - Vital Signs/Intake and Output Vital Signs (last 24 hours): Temp Pulse Resp BP Pulse Ox 98.4 F 73 18 122/71 95 04/02/17 08:29 04/02/17 08:29 04/02/17 08:29 04/02/17 08:29 04/02/17 08:29 Intake and Output: 04/02/17 04/02/17 06:59 18:59 Intake Total 540 Output Total 1500 Balance -960 - Medications Medications: Current Medications Acetaminophen (Tylenol 325mg Tab) 650 mg PO Q6H PRN PRN Reason: Pain, moderate (4-7) Last Admin: 04/01/17 23:04 Dose: 650 mg Amitriptyline HCl (Elavil) 100 mg PO DAILY [facility] Last Admin: 04/02/17 10:11 Dose: 100 mg Aspirin (Aspirin Chewable) 81 mg PO DAILY [facility] Last Admin: 04/02/17 10:13 Dose: 81 mg Bupropion HCl (Wellbutrin) 150 mg PO BID [facility] Last Admin: 04/01/17 18:15 Dose: 150 mg Gabapentin (Neurontin) 600 mg PO TID [facility] PRN Reason: Protocol Last Admin: 04/02/17 10:11 Dose: 600 mg Home Med (Home Med) 2 unit PO 1000,1400,1800 [facility] Last Admin: 04/02/17 10:06 Dose: Not Given Insulin Detemir (Levemir) 25 unit SC [facility] Insulin Human Lispro (Humalog Low) 0 units SC [facility] PRN Reason: Protocol Last Admin: 04/02/17 08:38 Dose: 4 units Insulin Human Lispro (Humalog) 8 units SC AC [facility] Memantine (Namenda) 10 mg PO DAILY [facility] Last Admin: 04/02/17 10:11 Dose: 10 mg Metoprolol Tartrate (Lopressor) 50 mg PO HS [facility] Midodrine (Proamatine) 10 mg PO 0700,1100,1500 [facility] Last Admin: 04/02/17 08:49 Dose: 10 mg Multivitamins (Thera Tab) 1 tab PO 0800 [facility] Last Admin: 04/02/17 08:49 Dose: 1 tab Nitroglycerin (Nitro-Bid 2% Oint) 1 ea TOP Q4H PRN PRN Reason: hypertension Oxycodone/Acetaminophen (Percocet 5/325 Mg Tab) 1 tab PO Q8 PRN PRN Reason: Pain, severe (8-10) Stop: 04/04/17 22:01 Last Admin: 04/02/17 08:48 Dose: 1 tab - Constitutional Appears: In Acute Distress, Older Than Stated Age, Chronically Ill - Head Exam Head Exam: ATRAUMATIC, NORMAL INSPECTION, NORMOCEPHALIC - Eye Exam Eye Exam: EOMI, Normal appearance, PERRL Pupil Exam: NORMAL ACCOMODATION - ENT Exam ENT Exam: Mucous Membranes Moist - Neck Exam Neck Exam: Full ROM - Respiratory Exam Respiratory Exam: Clear to Ausculation Bilateral - Cardiovascular Exam Cardiovascular Exam: REGULAR RHYTHM - GI/Abdominal Exam GI & Abdominal Exam: Soft, Normal Bowel Sounds - Extremities Exam Extremities Exam: Full ROM, Normal Inspection - Back Exam Back Exam: Full ROM, NORMAL INSPECTION - Neurological Exam Neurological Exam: Alert, Awake, CN II-XII Intact, Oriented x3 - Psychiatric Exam Psychiatric exam: Anxious - Skin Skin Exam: Intact, Normal Color, Warm Assessment and Plan (1) Chronic pain disorder Status: Acute (2) Anemia in chronic illness Status: Acute (3) Chronic renal disease, stage 3, moderately decreased glomerular filtration rate (GFR) between 30-59 mL/min/1.73 square meter Status: Acute - Assessment and Plan (Free Text) Assessment: Chronic back pain, spinal arthitis,herniated disc disease, anemia of chronic disease, CRF stage 3, Stable ASHD, supine hypertension, orthostatic hypotension , DJD, IDDM uncontrolled, OBS, anxiety, depression, neuropathy, pancreatic insufficiency, history of hernia repair. Plan: Continue medication as outlined. Adjusting Insulins. Diabetic reeducation. Physical therapy. Pain management consultation. OOB to chair. Fall precautions. Bp meds as outlined. Greater than 50 minutes was spent in the care, discussion of care, review of care and direction of care for this patient today. Patient remains chronically weak, debilitated and at high risk for complications given multiple medical problems and deconditioned status.
[2017-04-02] MEDS ORDERED: Sodium Chloride 0.9% 1,000 ML IV SCH (13:00)
[2017-04-02 16:45] VITALS: BP 137/85; PULSE 83; RESP 20
== END 2017-04-02 18:08 | disposition home or self-care (01) ==
LOC: ED 09:52 → INTOOBSV 13:29 → ERH 13:29 → 3RNO 15:43
PROVIDERS: ADMIT Internal Medicine; ATTEND Internal Medicine
DX: I25.10 Atherosclerotic heart disease of native coronary artery without angina pectoris (principal); F03.90 Unspecified dementia, unspecified severity, without behavioral disturbance, psychotic disturbance, mood disturbance, and anxiety; E11.649 Type 2 diabetes mellitus with hypoglycemia without coma; G89.29 Other chronic pain; M25.552 Pain in left hip; E83.42 Hypomagnesemia; N18.3 Chronic kidney disease, stage 3 (moderate); I12.9 Hypertensive chronic kidney disease with stage 1 through stage 4 chronic kidney disease, or unspecified chronic kidney disease; K86.1 Other chronic pancreatitis; M19.90 Unspecified osteoarthritis, unspecified site; M54.9 Dorsalgia, unspecified; D63.8 Anemia in other chronic diseases classified elsewhere; F41.9 Anxiety disorder, unspecified; E11.40 Type 2 diabetes mellitus with diabetic neuropathy, unspecified; F32.9 Major depressive disorder, single episode, unspecified; Z79.4 Long term (current) use of insulin; Z95.1 Presence of aortocoronary bypass graft
CPT/HCPCS: 36415; 71010; 80053; 81003; 82550; 82948; 83615; 83735; 84443; 84484; 85025; 93005; 96365; 96375; 97116; 97162; 99285; G0378; G8978; G8979; J2270; J3475; J7042